=== PATIENT | male | born 1970 | race African-American/Black ===

== ENCOUNTER 2016-11-19 00:43 | Emergency (ER) | payer OTHER ==
[~2016-11-19] VITALS: Ht 175.3 cm; Wt 111.1 kg
[~2016-11-19 00:43] MED LIST: ALPRAZOLAM2 MG; BUSPAR10 MG ORAL; HYDROCHLOROTHIA25 MG ORAL; IBUPROFEN600 MG ORAL; QUETIAPINE FUM300 MG ORAL; TRAMADOL HCL50 MG ORAL
[2016-11-19] MEDS ORDERED: NKM (00:59)
[2016-11-19 01:15] VITALS: BP 171/96
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
[2016-11-19 01:35] VITALS: BP 171/96
== END 2016-11-19 01:36 | disposition home or self-care (01) ==
LOC: EMR 01:25
DX: Z76.5 Malingerer [conscious simulation] (principal); F19.10 Other psychoactive substance abuse, uncomplicated; F41.9 Anxiety disorder, unspecified; F31.9 Bipolar disorder, unspecified; I10 Essential (primary) hypertension
CPT/HCPCS: 99284